=== PATIENT | female | born 1990 | race African-American/Black ===

== ENCOUNTER 2019-04-11 22:48 | Emergency (ER) | payer OTHER ==
[~2019-04-11] VITALS: Ht 160 cm; Wt 67.0 kg
[2019-04-12] MEDS ORDERED: IBUPROFEN 600MG TABLET PO ONE (02:45)
[2019-04-12 04:18] LABS: BASOPHILS % 0.6 % (0.0-2.0); EOSINOPHILS % 2.7 % (0.0-5.0); LYMPHOCYTES % 49.1 % (20.0-50.0); MEAN CORPUSCULAR HEMOGLOBIN 29.7 pg (28.0-32.0); MEAN CORPUSCULAR VOLUME 88.8 fL (81.0-99.0); MEAN PLATELET VOLUME 9.2 fl (7.4-10.4); MONOCYTES % 3.6 % (2.0-8.0); PLATELET 280 x1000/uL (130-400); RED BLOOD CELL COUNT 4.39 mill/uL (4.2-5.4); RED CELL DISTRIBUTION WIDTH 13.9 % (11.6-14.6)
[2019-04-12 04:21] LABS: CHLORIDE 109 mEq/L (98-107)
[2019-04-12 04:51] LABS: CLARITY URINE CLEAR (CLEAR); COLOR URINE YELLOW (YELLOW); KETONES URINE NEGATIVE (NEGATIVE); LEUKOCYTE ESTERASE URINE NEGATIVE (NEGATIVE); NITRITE URINE NEGATIVE (NEGATIVE); OCCULT BLOOD URINE 3+ (NEGATIVE); PROTEIN URINE NEGATIVE (NEGATIVE); UROBILINOGEN URINE 0.2 E.U./dL (0.2-1.0)
[2019-04-12 05:02] VITALS: BP 116/74
[2019-04-12 05:43] LABS: HCG SCREEN NEGATIVE
[2019-04-12] MEDS ORDERED: POTASSIUM CHLORIDE 20MEQ TABLET SR PO ONE (06:00)
== END 2019-04-12 06:00 | disposition home or self-care (01) ==
LOC: ER 22:48
DX: R10.2 Pelvic and perineal pain (principal); R05 Cough; E28.2 Polycystic ovarian syndrome; Z88.0 Allergy status to penicillin; Z88.2 Allergy status to sulfonamides
CPT/HCPCS: 36415; 71045; 76856; 80053; 81003; 81025; 84703; 85025; 87804; 99284